=== PATIENT | male | born 1995 | race Caucasian/White ===

== ENCOUNTER 2018-03-22 13:13 | Emergency (ER) | payer MEDICAID ==
[~2018-03-22] VITALS: Ht 182.9 cm; Wt 84.0 kg
[~2018-03-22 13:13] MED LIST: NO HOME MEDS
[2018-03-22 13:26] VITALS: BP 146/86
== END 2018-03-22 14:44 | disposition home or self-care (01) ==
LOC: ER 13:15
DX: R11.2 Nausea with vomiting, unspecified (principal); T62.8X1A Toxic effect of other specified noxious substances eaten as food, accidental (unintentional), initial encounter; F41.9 Anxiety disorder, unspecified; F12.90 Cannabis use, unspecified, uncomplicated; Y92.511 Restaurant or cafe as the place of occurrence of the external cause
CPT/HCPCS: 99281

== ENCOUNTER 2023-10-06 10:27 | Emergency (ER) | payer MEDICAID ==
[~2023-10-06] VITALS: Ht 182.9 cm; Wt 93.2 kg
[2023-10-06 10:34] VITALS: BP 121/83; PULSE 63; RESP 16; TEMP 97; O2SAT 96
[2023-10-06] MEDS: dexamethasone sod phosphate 10mg/ml inj IM STA (11:02)
[2023-10-06] MEDS ORDERED: PRED20TA PO (11:03)
[2023-10-06] MEDS ORDERED: METH-798 PO (11:03)
== END 2023-10-06 11:24 | disposition home or self-care (01) ==
LOC: ER 10:27
DX: M54.12 Radiculopathy, cervical region (principal); M54.50 Low back pain, unspecified; F12.90 Cannabis use, unspecified, uncomplicated
CPT/HCPCS: 96372; 99283; J1100